=== PATIENT | male | born 1950 | race Caucasian/White ===

== ENCOUNTER 2016-11-30 07:49 | Emergency (ER) | payer OTHER ==
[2016-11-30 08:55] VITALS: BP 145/108
--- NOTE | 2016-11-30 09:27 | EDM.PDOC ---
ED HPI GENERAL MEDICAL PROBLEM - General Chief Complaint: General Stated Complaint: Fall at home, left shoulder pain, tailbone pain Time Seen by Provider: 11/30/16 08:26 Source of Information: Reports: Patient History Limitations: Reports: No limitations - History of Present Illness INITIAL COMMENTS - FREE TEXT/NARRATIVE: Patient fell at home when he was up getting water for his water bottle. Turned around to leave sink area and fell, blames it on peripheral neuropathy and rug. Fell flat on his back. Bumped head a little bit on a cabinet but not hard per patient. No LOC. Complains of chronic mild dizziness that may have contributed to fall. This is not new, and is not worse than usual. Denies headache/vision change/new neuro changes. No neck pain. Complains of discomfort in area of left lower scapula as well as lumbar/sacral spine region. Has chronic discomfort in lower legs due to neuropathy. THis is at normal level today. No increased weight/swelling per patient. No report of new medications or recent illness. Uses walker to get around. Supposed to be moving to his own apartment starting today. No other new complaints. Deep breathing does not make scapular discomfort worse. LEFT SCAPULA Pain Score (Numeric/FACES): 8 COCCYX Pain Score (Numeric/FACES): 7 LUMBAR SPINE Pain Score (Numeric/FACES): 6 - Related Data Allergies Allergy/AdvReac Type Severity Reaction Status Date / Time Penicillins Allergy Unknown swelling Verified 11/30/16 08:33 at injection site, nausea amitriptyline Allergy Hallucinati Verified 11/30/16 08:33 ons Home Meds: Home Meds Insulin Aspart [Novolog Flexpen] 5 units SUBCUT TIDMEALS 09/12/13 [History] Insulin Glarg,Human.Rec.Analog [Lantus] 30 unit SUBCUT QAM@0600 10/04/16 [ History] amLODIPine [Norvasc] 10 mg PO DAILY 10/04/16 [History] Acetaminophen/HYDROcodone [[place] 325-5 MG] 1 tab PO Q6H PRN #10 tablet 11/30/16 [Rx] DULoxetine HCl [Cymbalta] 30 mg PO DAILY 11/30/16 [History] Lidocaine 5% [Lidoderm 5%] 2 patch TOP BEDTIME 11/30/16 [History] Losartan [Cozaar] 25 mg PO DAILY 11/30/16 [History] Pregabalin [Lyrica] 200 mg PO TID 11/30/16 [History] atorvaSTATin Calcium [Atorvastatin Calcium] 40 mg PO BEDTIME 11/30/16 [History] hydrALAZINE HCl [Hydralazine HCl] 25 mg PO TID 11/30/16 [History] Past Medical History HEENT History: Reports: Impaired vision, Other (see below) Other HEENT History: Bilateral presbycusis with noncompliance with hearing aid therapy, glasses Cardiovascular History: Reports: Heart Failure, Hypertension, Other (see below) Other Cardiovascular History: Denies heart failure despite long-term orthopnea Respiratory History: Reports: COPD, Intubation, previous, Other (see below) Other Respiratory History: COPD by chest x-ray not currently under therapy, intubation during previous transplant surgery Gastrointestinal History: Reports: Cholelithiasis, Cirrhosis, GERD, Hepatitis, Other (see below) Other Gastrointestinal History: Cholecystectomy as below, 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 with transplant as below, hepatitis C initially diagnosed in about 1992 Genitourinary History: Reports: Chronic renal insuffiency, Dialysis, Diabetic nephropathy, Renal disease, Other (see below) Other Genitourinary History: Chronic renal insufficiency secondary to his diabetes and hepatic cirrhosis with dialysis prior to transplant in 2007 Musculoskeletal History: Reports: Arthritis, Fracture Other Musculoskeletal History: Metacarpal fracture of the right hand, right midshaft fibular shaft fracture Neurological History: Reports: CVA, Neuropathy, diabetic, Neuropathy, peripheral , Other (see below) Other Neuro History: Myasthenia gravis, 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, Psychiatric History: Reports: Addiction, Psychosis, Other (see below) Other Psychiatric History: Chronic narcotic use, previous alcohol addiction, psychosis with hepatic failure Endocrine/Metabolic History: Reports: Diabetes, type II, IDDM Hematologic History: Reports: None Immunologic History: Reports: Immunosuppression, Other (see below) Other Immunologic History: Secondary to his kidney and renal transplants with no current immunosuppressive therapy, IDDM Oncologic (Cancer) History: Reports: None Dermatologic History: Reports: None - Infectious Disease History Infectious Disease History: Reports: Chicken pox, MRSA - Past Surgical History Head Surgeries/Procedures: Reports: None HEENT Surgical History: Reports: Oral surgery, Tonsillectomy, Other (see below) Other HEENT Surgeries/Procedures: Multiple teeth extraction, tonsillectomy at about age 18 Cardiovascular Surgical History: Reports: None Respiratory Surgical History: Reports: Thoracentesis, Other (see below) Other Respiratory Surgeries/Procedures: Thoracentesis prior to liver transplant GI Surgical History: Reports: Abdominal paracentesis, Cholecystectomy, Colonoscopy, Hernia, abdominal, Other (see below) Other GI Surgeries/Procedures: Liver and kidney transplant in 2008 secondary to hepatic cirrhosis and liver/renal failure, liver biopsy at [facility] in October 2015, abdominal paracentesis on multiple occasions prior to hepatic transplant, cholecystectomy in the , colonoscopy on 09/12/13, abdominal umbilical hernia repair in about 2005 Male Surgical History: Reports: Circumcision, Other (see below) Other Male Surgeries/Procedures: Circumcision as an Endocrine Surgical History: Reports: None Neurological Surgical History: Reports: None Musculoskeletal Surgical History: Reports: None Oncologic Surgical History: Reports: None Dermatological Surgical History: Reports: None - Past Imaging History Past Imaging History: Reports: CAT scan (Specifics unknown-multiple), MRI ( Specifics unknown- multiple) Social & Family History - Family History HEENT: Reports: Allergic rhinitis, Hearing impairment, Other (see below) Other HEENT Family History: Allergic rhinitis in sister, hearing loss in father and sister Cardiac: Reports: Blood clots/VTE/DVT, CAD, Hypertension, OR, Other (see below) Other Cardiac Family History: Daughter with recurrent SABs possibly secondary to possible antiphospholipid syndrome however no previous history of DVTs, father with hypertension, paternal grandmother with fatal OR in her 60s, maternal grandmother with OR Respiratory: Reports: None GI: Reports: None : Reports: None OBGYN: Reports: Endometriosis, Fibroids, Recurrent spontaneous , Other ( see below) Other OBGYN Family History: Sister with endometriosis, daughter with recurrent SABs as above, 2 daughters with fibroids Musculoskeletal: Reports: None Neurological: Reports: None, Other (see below) Other Neurological Family History: Father with fatal myasthenia gravis at age 66 Psychiatric: Reports: Anxiety, Depression, Psych hospitalization(s), Suicide attempt, Other (see below) Other Psychiatric Family History: Anxiety depression disorder in daughter with psychiatric hospitalization secondary to suicide attempt Endocrine/Metabolic: Reports: Diabetes, type II, Hypothyroidism, IDDM, Other ( see below) Other Endocrine/Metabolic Family History: Sister with hypothyroidism, father and sister with IDDM Hematologic: Reports: Anemia, Bleeding disorder, Other (see below) Other Hematologic Family History: Daughter with iron deficiency anemia and possible antiphospholipid syndrome Immunologic: Reports: None Dermatologic: Reports: Eczema, Other (see below) Other Dermatologic Family History: Sister with eczema Oncologic: Reports: Breast, Cervix, Ovarian, Other (see below) Other Oncologic Family History: Mother with fatal breast cancer at age 52, sister with cervical cancer in her 50s, sister with ovarian cancer in her 50s - Tobacco Use Smoking Status *Q: Former Smoker Years of Tobacco use: 3 Packs/Tins Daily: 0.5 Used Tobacco, but Quit: Yes Month Tobacco Last Used: Quit 20 years ago Second Hand Smoke Exposure: Yes - Caffeine Use Caffeine Use: Reports: Coffee, Soda - Alcohol Use Days Per Week of Alcohol Use: 0 (history of alcohol abuse with secondary hepatic cirrhosis with no use since about 1979) - Recreational Drug Use Recreational Drug Use: No Drug Use in Last 12 Months: No Recreational Drug Type: Reports: Heroin, Marijuana/Hashish, Other (see below). Denies: Amphetamines (Speed), Cocaine, LSD (Acid), Methamphetamine, Morphine Other Recreational Drug Type: Last use of illicit drugs in 1983 - Living Situation & Occupation Living situation: Reports: with family (Currently lives with his 's apartment however she is currently in alcohol and drug treatment program, he is followed closely by his Daughter) Occupation: disabled (In 2000 secondary to multiple chronic health problems as above, prior newspaper delivery) ED ROS GENERAL - Review of Systems Review Of Systems: ROS reveals no pertinent complaints other than HPI. ED EXAM, GENERAL - Physical Exam Exam: See Below Exam Limited By: No limitations General Appearance: alert, WD/WN, no apparent distress Eye Exam: bilateral eye: EOMI, PERRL Ears: normal external exam, normal canal, hearing grossly normal, normal TMs Nose: normal inspection Throat/Mouth: Normal inspection, Normal lips, Normal voice, No airway compromise Head: atraumatic, normocephalic. No: facial tenderness Neck: normal inspection, supple, non-tender, full range of motion Respiratory/Chest: no respiratory distress, lungs clear, normal breath sounds, no accessory muscle use, chest non-tender Cardiovascular: normal peripheral pulses, regular rate, rhythm, no edema, no murmur Peripheral Pulses: 2+: radial (L), radial (R) GI/Abdominal: normal bowel sounds, soft, non tender, no distention (Male) Exam: Other (No signs of acute trauma) Rectal (Males) Exam: Deferred Back Exam: paraspinal tenderness (lumbar area bilaterally), other (Tender with palpation over inferior portion left scapula). No: CVA tenderness (L), CVA tenderness (R), vertebral tenderness Extremities: no pedal edema, other (general discomfort with palpation bilaterally below thighs, patient says this is normal and is from peripheral neuropathy. ). No: joint swelling, increased warmth Neurological: alert, oriented, CN II-XII intact, normal cognition, no motor/ sensory deficits Psychiatric: normal affect, normal mood Skin Exam: Warm, Dry, Intact, Ecchymosis (early bruising noted bilateral upper buttock area). No: Erythema Course - Vital Signs Last Recorded V/S: Last Vital Signs Temp 36.5 C 11/30/16 08:52 Pulse 86 11/30/16 08:52 Resp 20 11/30/16 08:52 BP 145/108 H 11/30/16 08:52 Pulse Ox 99 11/30/16 08:52 - Orders/Labs/Meds Orders: Active Orders 24 hr Category Date Time Status Lumbar Spine 2 or 3V [CR] Stat Exams 11/30/16 08:07 Taken Sacrum Coccyx Min 2V [CR] Stat Exams 11/30/16 08:08 Taken Scapula Lt [CR] Stat Exams 11/30/16 08:06 Taken Labs: Laboratory Tests 11/30/16 11/30/16 11/30/16 Range/Units 08:14 08:14 09:07 WBC 7.3 (4.0-10.2) K/uL RBC 4.78 (4.33-5.41) M/uL Hgb 13.5 D (13.1-16.8) g/dL Hct 39.3 (39.0-49.0) % MCV 82.2 L (84.0-98.0) fL MCH 28.2 (28.2-33.3) pg MCHC 34.4 (31.7-36.0) g/dL RDW 14.2 H (11.2-14.1) % Plt Count 159 (150-350) K/uL Neut % (Auto) 71.9 (45.0-80.0) % Lymph % (Auto) 18.3 (10.0-50.0) % Polk % (Auto) 7.8 (2.0-14.0) % Eos % (Auto) 1.6 (0.0-5.0) % Baso % (Auto) 0.4 (0.0-2.0) % Neut # (Auto) 5.25 (1.40-7.00) K/uL Lymph # (Auto) 1.34 (0.50-3.50) K/uL Polk # (Auto) 0.57 (0.00-1.00) K/uL Eos # (Auto) 0.12 (0.00-0.50) K/uL Baso # (Auto) 0.03 (0.00-0.20) K/uL Sodium 134 L (136-145) mmol/L Potassium 4.4 (3.5-5.1) mmol/L Chloride 97 L (98-107) mmol/L Carbon Dioxide 27.8 (21.0-32.0) mmol/L BUN 41 H (7-18) mg/dL Creatinine 1.50 H (0.51-1.17) mg/dL Est Cr Clr Drug Dosing 44.50 mL/min Estimated GFR (MDRD) 47 mL/min Glucose 207 H (74-106) mg/dL Calcium 8.8 D (8.5-10.1) mg/dL Total Bilirubin 0.5 (0.2-1.0) mg/dL AST 18 (15-37) U/L ALT 24 (12-78) U/L Alkaline Phosphatase 63 (46-116) IU/L Total Protein 7.1 (6.4-8.2) g/dL Albumin 3.5 (3.4-5.0) g/dL Specimen Type Urincc Urine Color Yellow Urine Appearance Clear Urine pH 5.5 (5.0-9.0) Ur Specific Sharon 1.025 (1.005-1.030) Urine Protein >=300 H (NEGATIVE) mg/dL Urine Glucose (UA) 500 H (NEGATIVE) mg/dL Urine Ketones Negative (NEGATIVE) mg/dL Urine Occult Blood Negative (NEGATIVE) Urine Nitrite Negative (NEGATIVE) Urine Bilirubin Negative (NEGATIVE) Urine Urobilinogen 0.2 (0.2-1.0) E.U./dL Ur Leukocyte Esterase Negative (NEGATIVE) Urine RBC 0-5 /HPF Urine WBC 0-5 /HPF Ur Epithelial Cells Rare /LPF Other Crystals Few /HPF Urine Bacteria Rare (NONE TO FEW) /HPF - Radiology Interpretation Free Text/Narrative:: No obvious fracture noted left scapula/lumbar area. Mild abnormal appearance lower coccyx but uncertain if significant. - Re-Assessments/Exams Free Text/Narrative Re-Assessment/Exam: 11/30/16 09:51 No obvious acute fracture although morphology slightly unusual lower coccyx. Radiology to review xrays. Patient noted to have protein and sugar in UA. No WBCs. CBC overall unremarkable. Elevated BUN/CR as well as BS of just over 200 noted. Patient gave self 10u regular insulin per what he said was his instructions from [facility] for sliding scale. He had breakfast sandwich as well as diet Mountain Dew while he drove self to ER after the fall. Time spent with patient discussing more appropriate food/drink choices for IDDM. He has history of hyponatremia and had sodium level 2 points below normal range. Results discussed with patient. Conservative treatment plan at this time. He did receive 10 norco for prn pain use. BP elevated, however that may be in part to reaction to fall/pain. Recommend follow up at [facility] for routine recheck of all his chronic problems in December as well as recheck of today's injuries if pain is not improving. He is agreeable with plan. Extensive precautions given prior to discharge. Departure - Departure Time of Disposition: 09:58 Disposition: Home, Self-Care 01 Clinical Impression: IDDM (insulin dependent diabetes mellitus), Hyponatremia Hypertension Qualifiers: Hypertension type: essential hypertension Qualified Code(s): I10 - Essential ( primary) hypertension Fall Qualifiers: Encounter type: initial encounter Qualified Code(s): W19.XXXA - Unspecified fall, initial encounter Contusion of scapula, left Qualifiers: Encounter type: initial encounter Qualified Code(s): S40.012A - Contusion of left shoulder, initial encounter Lumbar contusion Qualifiers: Encounter type: initial encounter Qualified Code(s): S30.0XXA - Contusion of lower back and pelvis, initial encounter Contusion, buttock Qualifiers: Encounter type: initial encounter Qualified Code(s): S30.0XXA - Contusion of lower back and pelvis, initial encounter Diabetic neuropathy Qualifiers: Diabetes mellitus type: type 2 Diabetes mellitus complication detail: diabetic polyneuropathy Qualified Code(s): E11.42 - Type 2 diabetes mellitus with diabetic polyneuropathy Chronic renal insufficiency Qualifiers: Chronic kidney disease stage: unspecified stage Qualified Code(s): N18.9 - Chronic kidney disease, unspecified Prescriptions: Acetaminophen/HYDROcodone [[place] 325-5 MG] 1 tab PO Q6H PRN #10 tablet PRN Reason: Pain Instructions: Acetaminophen; Hydrocodone tablets or capsules, Hyponatremia, [id number], Contusion, [id number], Hypertension, [id number] Referrals: Nataliya Salgado MD [Primary Care Provider] - Forms: ED Department Discharge Additional Instructions: Activity as tolerated. Slow transitions when changing positions (such as sitting to standing) and when turning head. OK to take PRN [place] for pain but you [facility] if any additional [facility] are needed. [facility] and sodium within the next month. Follow up otherwise as needed. - My Orders Last 24 Hours: My Active Orders 11/30/16 08:06 Scapula Lt [CR] Stat 11/30/16 08:07 Lumbar Spine 2 or 3V [CR] Stat 11/30/16 08:08 Sacrum Coccyx Min 2V [CR] Stat - Assessment/Plan Last 24 Hours: My Active Orders 11/30/16 08:06 Scapula Lt [CR] Stat 11/30/16 08:07 Lumbar Spine 2 or 3V [CR] Stat 11/30/16 08:08 Sacrum Coccyx Min 2V [CR] Stat
== END 2016-11-30 10:05 | disposition home or self-care (01) ==
LOC: LL.ED 07:49
DX: S40.012A Contusion of left shoulder, initial encounter (principal); S30.0XXA Contusion of lower back and pelvis, initial encounter; E87.1 Hypo-osmolality and hyponatremia; E11.42 Type 2 diabetes mellitus with diabetic polyneuropathy; I13.0 Hypertensive heart and chronic kidney disease with heart failure and stage 1 through stage 4 chronic kidney disease, or unspecified chronic kidney disease; N18.9 Chronic kidney disease, unspecified; I50.9 Heart failure, unspecified; J44.9 Chronic obstructive pulmonary disease, unspecified; K21.9 Gastro-esophageal reflux disease without esophagitis; M19.90 Unspecified osteoarthritis, unspecified site; Z87.891 Personal history of nicotine dependence; Z86.73 Personal history of transient ischemic attack (TIA), and cerebral infarction without residual deficits; Z98.890 Other specified postprocedural states; Z90.49 Acquired absence of other specified parts of digestive tract; Z79.899 Other long term (current) drug therapy; Z79.4 Long term (current) use of insulin; Z88.0 Allergy status to penicillin; Z88.8 Allergy status to other drugs, medicaments and biological substances; W19.XXXA Unspecified fall, initial encounter
CPT/HCPCS: 36415; 72100; 72220; 73010-LT; 80053; 81001; 85025; 99283; 99284